=== PATIENT | male | born 1970 | race Caucasian/White ===

== ENCOUNTER 2016-07-25 14:15 | Outpatient (CLI) | payer OTHER ==
--- NOTE | 2016-07-26 08:50 | XRay Report ---
RIGHT SHOULDER, 3 views: History: Right shoulder pain. Normal bone mineralization. Minimal osteoarthritic changes are suspected at the a.c. joint. Tiny subchondral cysts are noted in the superior humeral head. No evidence for fracture, dislocation or ligamentous injury. The soft tissues are unremarkable. IMPRESSION: Early osteoarthritic changes.
== END 2016-07-25 14:16 | disposition home or self-care (01) ==
LOC: XRAY 14:15
PROVIDERS: ATTEND Family Medicine
DX: M25.811 Other specified joint disorders, right shoulder (principal)